=== PATIENT | female | born 1985 | race Two or more races ===

== ENCOUNTER 2018-01-07 13:09 | Emergency (ER) | payer OTHER ==
[~2018-01-07] VITALS: Ht 172.7 cm; Wt 76.2 kg
[2018-01-07] MEDS ORDERED: XANAX0.25 MG (13:34)
== END 2018-01-07 15:02 | disposition home or self-care (01) ==
LOC: ER 13:09
DX: Z03.89 Encounter for observation for other suspected diseases and conditions ruled out (principal)